=== PATIENT | female | born 1980 | race Caucasian/White ===

== ENCOUNTER 2020-11-20 02:01 | Outpatient (CLI) | payer BC, SELFPAY ==
[2020-11-20 16:03] LABS: Source Nasal/Nares
[2020-11-20 19:43] LABS: COVID-19 PCR Negative (Negative)
== END 2020-11-20 02:02 | disposition home or self-care (01) ==
LOC: LBO 02:01
PROVIDERS: PCP Student in an Organized Health Care Education/Training Program; Visit Provider Surgery
DX: Z20.822 Contact with and (suspected) exposure to COVID-19 (principal); Z01.818 Encounter for other preprocedural examination
CPT/HCPCS: 87635

== ENCOUNTER 2020-11-22 06:21 | Day surgery (SDC) | payer BC, SELFPAY ==
--- NOTE | 2020-11-21 14:58 | PDOC.DSDIS_ITS ---
Discharge Plan Disposition Patient Disposition: HOME Condition: Good Discharge Details Reason For Visit: egd Attending Provider: Missy Iniguez Primary Care Provider: Kayli Ochoa Home Meds and New Rx's Prescriptions: No Action magnesium oxide,aspartate,citr 400 mg magnesium capsule 400 mg PO DAILY Qty: 100 RF: 1 multivitamin [Daily Multi-Vitamin] 1 EACH tablet 1 ea PO DAILY RF: 0 calcium citrate 250 MG tablet 250 mg PO DAILY RF: 0 gummie B complex 1 tab PO DAILY RF: 0 famotidine 20 mg tablet 20 mg PO HS RF: 0 Discharge Instructions Additional Instructions: DSU Colonoscopy Post- Op Instructions Instructions for Everyone who is given Anesthesia: For your safety, please do the following for the next twenty-four (24) hours: *Do Not operate a motor vehicle (car, truck, motorcycle, etc.) *Do Not drink alcoholic beverages or use any recreational drugs for the first 24 hours or while taking pain medications. The medications in your body may have a reaction that can be dangerous. *Do Not make any important decisions or sign any important papers. Findings:mild gastritis Follow up: My office will send a letter with results of pathology in approximately 2 to 3 weeks Continue taking Pepcid as previously prescribed Continue with lifestyle modifications: no alcohol, tobacco products, Aspirin or NSAID's (ibuprofen, Motrin, Naprosyn, aleve, etc), soda pop/any carbonated beverages, caffeine (including tea & chocolate), and acidic foods, (tomatoes, citrus, onions, peppermints) spicy or fried/fatty foods. Do not lie down for 30 minutes after eating, and do not eat 2 hours prior to bedtime. Avoid wearing tight fitting clothing/ belts 1. No lifting over 20 pounds or strenuous activity for the first 24 hours after your procedure. After 24 hours there are no restrictions on your activity but you may feel fatigued for a few days. 2. After you arrive home you may have a light meal and return to your normal diet as you can tolerate it without feeling sick to your stomach. 3. You may have a bloated, gaseous feeling in your belly (abdomen) after a colonoscopy. Passing gas and belching will help. Walking or lying down on your left side with your knees flexed may relieve the discomfort. Call the office at [phone] (Office) or [phone] (Hospital) right away if you notice any of the following: a.Vomiting of blood or ?coffee ground stools?. b.Rectal bleeding 1Tbsp, blood clots or continuous bleeding. c.Severe belly (abdominal) pain. d.A hard distended belly (abdomen) and an inability to pass gas. 4. Please don?t expect to have a normal BM (bowel movement) for 2-3 days after your procedure. 5. If there are questions regarding the findings of your procedure, please contact your doctor 6. If you are unable to contact your doctor with a problem, contact the hospital at [phone]. 7. Continue all your regular medications unless directed otherwise. I understand the above instructions and have no questions. Signature of Patient or Adult Escort Name of Responsible Adult Escort Signature of Nurse Date/Time Activity:: see above Diet:: see abnove Discharge Orders Discharge Orders: Discharge Order (Routine); Ordered 11/21/20 Ordered By: Missy Iniguez DS: Diagnosis Discharge Diagnosis (1) GERD (gastroesophageal reflux disease): Status: Chronic
--- NOTE | 2020-11-21 14:59 | W.PM.ENDDOP ---
Date of service: 11/22/20 Time of Service: 08:06 Endoscopy Report DATE OF PROCEDURE: 11/22/20 PRE-OP DIAGNOSIS: Medication refractory GERD POST-OP DIAGNOSIS: same PROCEDURE: egd SURGEON: Missy Iniguez ANESTHESIA TYPE: General:No Airway ESTIMATED BLOOD LOSS: 1 PATHOLOGY: other COMPLICATIONS: None DISPOSITION: same day INDICATIONS: After informed consent was obtained the patient was take to the procedure room and placed in a supine position. Monitors were applied and a time out was done. The patients name, date of , procedure type, allergies to medications and metal in their body was reviewed. A bite block was placed and the patient was sedated. Once sedated and comfortable the gastroscope was advanced through the oropharynx which was grossly normal into the esophagus. The proximal and mid-esophagus were mild erythema. In the distal esophagus there was normal noted. The scope was advanced into the stomach and through the pylorus into the 3rd portion of the duodenum. The duodenum was noted to be normal. Biopsies were done, all specimens are retrieved and no bleeding is noted. The scope was retracted back into the stomach and biopsies were done to rule out H. pylori. There is a mild diffuse erythema of the antral region. There were no ulcers. The scope was retroflexed. The cardia and fundus were noted to be normal. There is no hiatal hernia noted. The scope was retracted back into the esophagus and biopsies were done of the GE junction to rule out Giron's. The Z line was regular. The GE junction was at 38 cm. The scope was removed and the patient was woken up and taken back to [facility] in stable condition. Follow up: Abnormal
--- NOTE | 2020-11-21 18:53 | ANES.PREOP_ITS ---
General Info Date of Service Date Performed: 11/22/20 Height: 5 ft 6 in Weight: 125.191 kg Body Mass Index (BMI): 44.5 Surgical Procedure: Operation Date: 11/22/20 07:35 Proposed Procedures Side Surgeon p Gastroscopy Missy Iniguez, DO Meds Allergies and Home Medications Allergies Allergy/AdvReac Type Severity Reaction Status Date / Time No Known Allergies Allergy Verified 11/22/20 06:44 Home Medication Medication Instructions Recorded Gummie B Complex 1 tab PO DAILY 11/21/13 calcium citrate 250 mg PO DAILY 11/21/13 multivitamin [Multi Vitamin Daily] 1 ea PO DAILY 11/21/13 famotidine 20 mg tablet 20 mg PO HS 08/08/20 magnesium oxide,aspartate,citr 400 mg PO DAILY #100 cap 08/25/20 Current Visit Medications: Current Medications Generic Name Dose Route Start Last Admin Trade Name Freq PRN Reason Stop Dose Admin Ringer's Solution 1,000 mls @ 80 mls/hr 11/22/20 06:00 IV 12/21/20 23:59 INFUSION [facility] IV Miscellaneous Supplies 1 each 11/22/20 06:00 Iv Access IV 12/21/20 23:59 DIRECTED EBENEZER Ondansetron HCl 4 mg 11/21/20 14:58 Ondansetron 4 Mg/2 Ml Vial IVP Q4H PRN PRN Nausea / Vomiting Sodium Chloride 0 ml 11/22/20 06:00 Normal Saline Flush 10 Ml Syr IV 12/21/20 23:59 PRN PRN Sodium Chloride 0 ml 11/22/20 06:00 Normal Saline 10 Ml Vial IJ 12/21/20 23:59 DIRECTED PRN Sterile Water 0 ml 11/22/20 06:00 Water,Injection,Sterile 10 Ml Vial IJ 12/21/20 23:59 DIRECTED PRN PFSH Active Problems Active Problems: Problem Status Onset Code Pain of right shoulder joint on movement M25.511 GERD (gastroesophageal reflux disease) K21.9 Hypertension I10 Dyshydrosis L30.1 Changes in vision H53.9 (vaginal after ) 05/23/14 O34.21 Post-dates 05/23/14 O48.0 Rh negative status during 05/23/14 O09.899 Body mass index (BMI) of 40.1-44.9 in adult Z68.41 Eczema L30.9 Medical History Medical History Anxiety Zoloft in the past. BMI 40.0-44.9, adult Changes in vision Dyshydrosis Eczema GERD (gastroesophageal reflux disease) Hypertension Pain of right shoulder joint on movement Strain of Trap/Rhomboid? Hx carrying 6yo on vacation. Ice helping. No Ibu 2' GERD for now. Surgical History Surgical History section 02/19/12 LTCS with 2 layer 0-Vicryl closure. F. [id number]. Chorio, non- reassuring FHR at 41w. Daeva. 05/23/14 emergent RCD @ 40.3w for non-ressuring FHR w/o labor. Amniotic band around umbilical cord. Apgars 0/3/5. Wt 3380gms, Corry. Tonsillectomy and adenoidectomy (~1983) Tobacco Smoking/Tobacco Use Status: Never Alcohol Alcohol Intake: current Alcohol intake frequency: holidays/special occasions only Alcohol type: beer, wine and hard liquor Substance Use Substance use: Never Substance use type: does not use Vital Signs and Lab Results Vital Signs Most Recent Vital Signs in EMR: Temp Pulse Resp BP Pulse Ox 36.7 C 92 H 20 134/93 H 99 11/22/20 06:33 11/22/20 06:33 11/22/20 06:33 11/22/20 06:33 11/22/20 06:33 Lab Results Blood Type / Crossmatch: No Data to Display Complete Blood Count: No Data to Display Complete Metabolic Panel: No Data to Display Liver Function Panel: No Data to Display Coagulation Panel: No Data to Display Cardiac Panel: No Data to Display Arterial Blood Gas: No Data to Display Venous Blood Gas: No Data to Display Pancreas Panel: No Data to Display Thyroid Panel: No Data to Display Infectious Disease: Coronavirus (COVID-19)(PCR) Negative (Negative) 11/20/20 08:53 11/20/20 Coronavirus 2019 Source Nasal/Nares 11/20/20 08:53 11/20/20 Blood Cultures: No Data to Display Toxicology Panel: No Data to Display Panel: No Data to Display Anesthesia Assessment and Plan Anesthesia History Personal History: No History of Anesthesia Complications Family History: No Family History of Anesthesia Complications Exercise Tolerance Exercise Tolerance: Metabolic Equivalents>4 Cardiac & Pulmonary Exam Cardiac Exam: Normal S1/S2 Heart Sounds Pulmonary Exam: Clear Bilateral Breath Sounds Airway Exam Known Difficult Airway: No Mallampati Class: 3 Mouth Opening: Normal (> 3cm) Thyromental Distance: Greater than 3 cm Neck Range of Motion: Full ROM Neck Circumference: Thick Teeth Condition: Normal Dentition ASA Classification ASA Score: ASA 3 Emergency Case?: No NPO Status NPO Status: NPO Clears >2 hours, Solids >8 hours Status Status: Negative HCG Anesthesia Plan Resuscitation Status: Full Code Anesthesia Technique: General Anesthesia Airway Planned: Natural Airway Monitors Used: Standard Monitors Preoperative Comments:: 40 yo female for EGD related to reflux symptoms (waking up with sore throat). Previous anesthesia arteaga 2 grade 1.
[2020-11-22 06:33] VITALS: BP 134/93; PULSE 92; RESP 20; TEMP 36.7; O2SAT 99
[2020-11-22] MEDS: Lactated Ringers 1,000 ML 80 ML IV (06:52)
[2020-11-22 07:08] VITALS: BMI 44.5
--- NOTE | 2020-11-22 07:32 | W.PM.HP.N ---
Date of service: 11/22/20 Time of Service: 07:32 Assessment and Plan Assessment and plan (1) GERD (gastroesophageal reflux disease): Status: Chronic Assessment and plan: GERD (gastroesophageal reflux disease): -EGD Risks include but are not limited to:bleeding, infection, perforation of esophagus. This would necessitate emergency surgery to repair the damage w/ possible ostomy; and other associated complications w/ the required surgery. Also complications of anesthesia including aspiration,[place]/CVA/. Protonix Rx Continue with lifestyle modifications: no alcohol, tobacco products, Aspirin or NSAID's (ibuprofen, Motrin, Naprosyn, aleve, etc), soda pop/any carbonated beverages, caffeine (including tea & chocolate), and acidic foods, (tomatoes, citrus, onions, peppermints) spicy foods. Do not lie down for 30 minutes after eating, and do not eat 2 hours prior to bedtime. Avoid wearing tight fitting clothing/ belts. Also d/w importance of weight loss and how this increases reflux. (2) Body mass index (BMI) of 40.1-44.9 in adult: Status: Chronic History of Present Illness Narrative: Pt states she wakes up in am w/ soar throat. She say it feels like material is pooling in nasal passages. She was started on pepcid by PCP; she notes it is helping w/ sourness at night. She denies any pain or difficulty swallowing. no N/V. Her Weight has been stable. She denies constipation or diarrhea. The Pecid is helping about 85%. She takes in evening and helps in evening, but doesn't last thru the night. She Feels pooly when she wakes up. She is working on diet and lifestyle modifications. We talked about weight loss. Psx- x2 C sections. PONV+ family hx of Reflux. vegy fish coffee: 1 in am soda: none. tea/ energy drinks smoker: no ETOH: rare nsaids'asa- rare Review of Systems All systems reviewed & are unremarkable except as noted in HPI and below PFSH Medical History Anxiety Zoloft in the past. BMI 40.0-44.9, adult Changes in vision Dyshydrosis Eczema GERD (gastroesophageal reflux disease) Hypertension Pain of right shoulder joint on movement Strain of Trap/Rhomboid? Hx carrying 5yo on vacation. Ice helping. No Ibu 2' GERD for now. Surgical History section 02/19/12 LTCS with 2 layer 0-Vicryl closure. F. [id number]. Chorio, non-reassuring FHR at 41w. Daeva. 05/23/14 emergent RCD @ 40.3w for non-ressuring FHR w/o labor. Amniotic band around umbilical cord. Apgars 0/3/5. Wt 3380gms, Corry. Tonsillectomy and adenoidectomy (~1983) Family History Father Prostate cancer Mother GERD (gastroesophageal reflux disease) Maternal Grandfather Hodgkin lymphoma pt remarks it may have been from an infected bird/pigeon - and not an hereditary type. Social History Smoking/Tobacco Use Status: Never Smoking risk assessment performed?: Yes Alcohol Intake: current Alcohol Intake frequency: holidays/special occasions only Alcohol type: beer, wine and hard liquor Drug use: Never Substance use type: does not use Adopted: No Caregiver/Support person: No Foster care: No Household members: spouse and children Housing: house Number of Children: 2 Do you need help understanding health information?: Never current occupation: Teacher Sexually active: Yes Do you think of yourself as: straight/heterosexual Current gender identity: female Do you feel safe at home: Yes Do you feel safe in your relationship?: Yes Meds Allergies and Home Medications Allergies Allergy/AdvReac Type Severity Reaction Status Date / Time No Known Allergies Allergy Verified 11/22/20 06:44 Home Medications Medication Instructions Recorded Confirmed Type Gummie B Complex 1 tab PO DAILY 11/21/13 11/22/20 History calcium citrate 250 mg PO DAILY 11/21/13 11/22/20 History multivitamin [Multi Vitamin Daily] 1 ea PO DAILY 11/21/13 11/22/20 History famotidine 20 mg tablet 20 mg PO HS 08/08/20 11/22/20 History magnesium oxide,aspartate,citr 400 mg PO DAILY #100 cap 08/25/20 11/22/20 Rx Exam Const General: cooperative, healthy appearing, comfortable, no acute distress, well developed and well groomed Nutritional Appearance: average body habitus and well nourished Orientation: alert, awake and oriented x3 [facility] Head: normal to inspection, normocephalic and atraumatic Ears: hearing grossly normal bilaterally and external ears normal General nose exam: external nose normal Face and sinus: normal facial exam and sinuses nontender Mouth: oral mucosae normal, lip normal, tongue normal and moist mucous membranes Teeth and gingiva: dentition normal Eyes General: appearance normal, both eyes and all related structures Conjunctivae: conjunctivae normal Sclera: sclerae normal Pupils: PERRL Neck Neck: normal visual inspection and full ROM Chest Chest: normal inspection of the chest Resp Effort & Inspection: normal respiratory effort, able to speak in complete sentences, no cough, no nasal flaring, not tachypneic and no use of accessory muscles Auscultation: clear to auscultation bilaterally, no rales, no rhonchi and no wheezes Cardio Jugular venous pressure: no JVD Rate: regular rate Rhythm: regular rhythm GI Inspection: normal to inspection, no edema and non-distended Palpation: soft, no masses, nontender and No ascites Auscultation: normal bowel sounds Skin General skin exam: no rashes or lesions noted Trauma: no lacerations or abrasions Neuro General: patient alert, patient oriented x3, oriented, gait normal, moves all extremities, no focal motor deficits and CN's II-XI intact bilaterally Cognition: normal cognition Speech: speech normal Gait: normal gait Motor: muscle tone normal throughout Extrem General: normal to inspection, full ROM and no clubbing, cyanosis or edema Psych Appearance: grossly normal and well kempt Mental Status: mental status grossly normal Speech and Movement: speech and movement normal Affect: normal affect Results Last Vital Signs Temp 36.7 C 11/22/20 06:33 Pulse 92 H 11/22/20 06:33 Resp 20 11/22/20 06:33 BP 134/93 H 11/22/20 06:33 Pulse Ox 99 11/22/20 06:33
--- NOTE | 2020-11-22 07:32 | W.ANESPOSTOP ---
Postoperative Evaluation Date, Time and Location Date Performed: 11/22/20 Time Performed: 08:16 Patient Location: Day Surgery Unit Vital Signs Most Recent Imported Vital Signs: Most Recent Vital Signs Temp Pulse Resp BP Pulse Ox 36.7 C 92 H 20 134/93 H 99 11/22/20 06:33 11/22/20 06:33 11/22/20 06:33 11/22/20 06:33 11/22/20 06:33 Most Recent Manually Entered Vital Signs: Adult Blood Pressure: 129/95 Heart Rate: 91 Respirations: 18 Oxygen Saturation (%): 97 Temperature (C): 36.3 C Pain Score (0-10 Scale): 0 Pain Score Most Recent Pain Score: Most Recent Pain Score Pain Level 0 11/22/20 06:33 Assessment Mental Status: Awake (Alert & Oriented to Patient Baseline) Airway and Respiratory Function: Patent airway with normal (patient baseline) respiratory exam Cardiovascular Function: Hemodynamically Stable Hydration Status: Adequately Hydrated Nausea & Vomiting: No Nausea or Vomiting Pain: Pt. Denies Any Pain Peripheral Nerve Block: Patient did not receive a nerve block
--- NOTE | 2020-11-22 07:55 | STOM_PTH ---
PATIENT: Jose Saenz LOC: [facility] U#:[id number] AGE/SX: 40/F ROOM: RE11/22/[address]: Missy nIiguez : 1980 BED: DIS: 11/22/2020 SPEC #: [id number] RECD: 11/22/20 12:51 STATUS: AMINA REQ #: [id number] ROSANNE: 11/22/20 07:[address]: Missy Iniguez DEPT: Surgical Specimen RECD BY: Kelly Vance ENTERED: 11/22/20 12:53 SP TYPE: STOMACH OTHR DR: Kayli Ochoa DO Tissues: 1 - BIOPSY BOWEL 2 - BIOPSY BOWEL 3 - STOMACH BIOPSY 4 - STOMACH BIOPSY 5 - ESOPHAGUS BIOPSY 6 - ESOPHAGUS BIOPSY Procedures: GROSS AND MICRO LEVEL 4 Comments: [id number]
[2020-11-22 08:06] VITALS: BP 129/95; PULSE 91; RESP 22; TEMP 36.3; O2SAT 97
[2020-11-22 08:16] VITALS: BP 129/95; PULSE 91; RESP 18; TEMPC 36.3; O2SAT 97
[2020-11-22 08:35] VITALS: BP 122/85; PULSE 75; RESP 20; TEMP 36.5; O2SAT 97
== END 2020-11-22 09:17 | disposition home or self-care (01) ==
PROVIDERS: PCP Student in an Organized Health Care Education/Training Program; Visit Provider Surgery
PROC: 0DJ68ZZ Inspection of Stomach, Via Natural or Artificial Opening Endoscopic (ICD-10-PCS; CPT 43235; principal; 2020-11-22 07:30)
DX: K21.9 Gastro-esophageal reflux disease without esophagitis (principal); K22.70 Barrett's esophagus without dysplasia; K31.89 Other diseases of stomach and duodenum; I10 Essential (primary) hypertension
CPT/HCPCS: 43239; 81025; 88305; J2001

== ENCOUNTER 2020-12-24 16:26 | Outpatient (REF) | payer BC, SELFPAY ==
--- NOTE | 2020-12-24 16:00 | PAPFT_PTH ---
PATIENT: Jose Saenz LOC: [facility] U#:[id number] AGE/SX: 40/F ROOM: RE12/24/[address]: Rossana Banegas : 1980 BED: DIS: 12/24/2020 SPEC #: [id number] RECD: 12/24/20 16:40 STATUS: AMINA REQ #: [id number] ROSANNE: 12/24/20 16:[address]: Rossana Banegas DEPT: [facility] Cytology RECD BY: Kelly Vance ENTERED: 12/24/20 16:41 SP TYPE: PAPFT OTHR DR: Kayli Ochoa DO Tissues: 1 - CX/ENDOCX FOR PAP SMEARS Procedures: PAP THIN PREP/[facility] Screening HPV DNA PROBE Comments: [id number]
== END 2020-12-24 16:27 | disposition home or self-care (01) ==
LOC: LBN 16:26
PROVIDERS: PCP Student in an Organized Health Care Education/Training Program; Visit Provider Obstetrics & Gynecology Gynecology
DX: Z12.4 Encounter for screening for malignant neoplasm of cervix (principal); Z11.51 Encounter for screening for human papillomavirus (HPV)
CPT/HCPCS: 88142; 87624

== ENCOUNTER 2021-01-03 02:30 | Outpatient (CLI) | payer BC, SELFPAY ==
--- NOTE | 2021-01-03 06:45 | DI.MAMMO_ITS ---
Exam(s) MAMMO SCREENING EXAM: MAMMO SCREENING CLINICAL HISTORY: screening,Z12.39 TECHNIQUE: Bilateral full field digital CC and MLO mammographic images were obtained with 3D tomosyn thesis and utilizing computer aided detection (CAD). COMPARISON: None. FINDINGS: Masses/Architectural Distortion: None seen. Microcalcifications: No suspicious pleomorphic-type are seen. Skin Thickening/Nipple Retraction: None. IMPRESSION: 1. No significant interval change with no specific features of malignancy noted. 2. Unless there is more urgent need, screening mammography is recommended, as per [employer] guidelines. BI-RADS Category 1 - Negative Breast Density - Category A - Almost entirely fatty Breast density category C or D implies that the patient has dense breast tissue. Dense breast tissue is very common and is not abnormal but dense breast tissue can make it harder to find cancer on a ma mmogram. Also, dense breast tissue may increase their breast cancer risk. This information about the result of the mammogram report was provided to the patient to raise their awareness. Use this report when you speak with the patient about their risks for breast cancer, which includes their family hist ory. At that time, you may recommend for more screening tests (Ultrasound or MRI) as they might be us eful based on their risk. A negative radiographic report should not delay biopsy if a dominant or clinically suspicious mass is present. Up to ten percent of cancers are not identified on mammography. A negative report may reinforce clinical impression. Adenosis and dense breasts may obscure an underlying neoplasm. False positive reports average 6 to 10%. Patient will receive a letter notifying them of these results.
== END 2021-01-03 02:50 ==
PROVIDERS: PCP Student in an Organized Health Care Education/Training Program; Visit Provider Obstetrics & Gynecology Gynecology
DX: Z12.31 Encounter for screening mammogram for malignant neoplasm of breast (principal)
CPT/HCPCS: 77063; 77067

== ENCOUNTER 2021-06-27 04:00 | Outpatient (CLI) | payer BC, SELFPAY | END 2021-06-27 04:01 | disposition home or self-care (01) | LOC: RT 04:00 | PROVIDERS: PCP Student in an Organized Health Care Education/Training Program; Visit Provider Student in an Organized Health Care Education/Training Program | DX: R53.83 Other fatigue (principal) | CPT/HCPCS: 94762 ==

== ENCOUNTER 2021-11-06 03:26 | Outpatient (CLI) | payer BC, SELFPAY ==
[2021-11-06 12:23] LABS: HCT 42.5 % (36.0-46.0); HGB 14.6 g/dL (11.2-15.7); MCH 30.3 pg (27.0-33.0); MCHC 34.4 % (32.0-36.0); MCV 88 fL (80-95); MPV 11.1 fL (8.0-11.0); Platelet Count 296 10^3/uL (130-400); RBC 4.82 10^6/uL (3.93-5.22); RDW 12.4 % (11.7-14.6); RDW-SD 40.3 fL; WBC 7.63 10^3/uL (4.4-10.8)
[2021-11-06 12:42] LABS: ALT 56 U/L (14-59); AST 35 U/L (15-37); Albumin 3.9 g/dL (3.4-5.0); Alkaline Phosphatase 85 U/L (46-116); Anion Gap 8.6 mmol/L (3-11); BUN 9 mg/dL (7-18); Bilirubin, Total 0.6 mg/dL (0.2-1.0); CO2 28.4 mmol/L (21.0-32.0); CREATININE 0.8 mg/dL (0.55-1.02); Calcium 9.1 mg/dL (8.5-10.1); Calculated LDL 211 mg/dL (<100); Chloride 104 mmol/L (98-107); Cholesterol 298 mg/dL (<200); Glucose 100 mg/dL (74-106); HDL Cholesterol 44 mg/dL (40-60); Potassium 4.1 mmol/L (3.5-5.1); Sodium 141 mmol/L (136-145); TSH (W/Ref FT4) 3.71 uIU/mL (0.36-3.74); Total Protein 7.5 g/dL (6.4-8.2); Triglyceride 217 mg/dL (<150)
[2021-11-06 12:57] LABS: Vitamin D 25 Total 27.1 ng/mL (30-100)
== END 2021-11-06 03:27 | disposition home or self-care (01) ==
LOC: LOS 03:29
PROVIDERS: PCP Student in an Organized Health Care Education/Training Program; Visit Provider Student in an Organized Health Care Education/Training Program
DX: R53.83 Other fatigue (principal); R63.5 Abnormal weight gain; I10 Essential (primary) hypertension; E86.0 Dehydration; K90.9 Intestinal malabsorption, unspecified; K22.70 Barrett's esophagus without dysplasia; D64.9 Anemia, unspecified; Z13.220 Encounter for screening for lipoid disorders; Z79.899 Other long term (current) drug therapy; Z86.2 Personal history of diseases of the blood and blood-forming organs and certain disorders involving the immune mechanism
CPT/HCPCS: 36415; 80053; 80061; 82306; 85027; 84443

== ENCOUNTER 2022-05-27 02:50 | Outpatient (CLI) | payer BC, SELFPAY ==
[2022-05-27 11:33] LABS: Calculated LDL 204 mg/dL (<100); Cholesterol 295 mg/dL (<200); HDL Cholesterol 48 mg/dL (40-60); Triglyceride 218 mg/dL (<150)
[2022-05-27 12:20] LABS: Vitamin D 25 Total 25.6 ng/mL (30-100)
== END 2022-05-27 02:51 | disposition home or self-care (01) ==
PROVIDERS: PCP Student in an Organized Health Care Education/Training Program; Visit Provider Student in an Organized Health Care Education/Training Program
DX: Z00.00 Encounter for general adult medical examination without abnormal findings (principal); E55.9 Vitamin D deficiency, unspecified; K21.00 Gastro-esophageal reflux disease with esophagitis, without bleeding; Z13.220 Encounter for screening for lipoid disorders
CPT/HCPCS: 36415; 80061; 82306

== ENCOUNTER 2022-07-29 01:18 | Outpatient (CLI) | payer BC, SELFPAY ==
--- NOTE | 2022-07-29 08:00 | DI.MAMMO_ITS ---
Exam(s) MAMMO SCREENING EXAM: MAMMO SCREENING CLINICAL HISTORY: screening,Z12.39 TECHNIQUE: Mammograms were interpreted according to the usual protocol including computer analysis w TripTouch CAD system, tomosynthesis and C-view imaging. COMPARISON: 2020 FINDINGS: The breasts are composed of mainly fatty density , Breast Density category A. No suspicious masses or suspicious microcalcifications are seen. No skin thickening or abnormal axillary lymph nodes are seen. There has been no significant change from prior exams. IMPRESSION: BI-RADS Category 1, Negative mammogram Yearly screening mammography is recommended. Breast Density - Category A, fatty density. A negative radiographic report should not delay biopsy if a dominant or clinically suspicious mass is present. Up to ten percent of cancers are not identified on mammography. A negative report may reinforce clinical impression. Adenosis and dense breasts may obscure an underlying neoplasm. False positive reports average 6 to 10%. Patient will receive a letter notifying them of these results.
== END 2022-07-29 01:38 ==
LOC: DI 01:18
PROVIDERS: PCP Student in an Organized Health Care Education/Training Program; Visit Provider Obstetrics & Gynecology Gynecology
DX: Z12.31 Encounter for screening mammogram for malignant neoplasm of breast (principal)
CPT/HCPCS: 77063; 77067

== ENCOUNTER 2023-06-08 04:44 | Outpatient (CLI) | payer BC, SELFPAY ==
[2023-06-08 11:27] LABS: HCT 40.5 % (36.0-46.0); HGB 14.1 g/dL (11.2-15.7); MCH 31.1 pg (27.0-33.0); MCHC 34.8 % (32.0-36.0); MCV 89 fL (80-95); MPV 10.2 fL (8.0-11.0); Platelet Count 293 10^3/uL (130-400); RBC 4.53 10^6/uL (3.93-5.22); RDW 12.4 % (11.7-14.6); RDW-SD 40.8 fL; WBC 8.56 10^3/uL (4.4-10.8)
[2023-06-08 12:10] LABS: Anion Gap 10.3 mmol/L (3-11); BUN 8 mg/dL (7-18); CO2 28.7 mmol/L (21.0-32.0); CREATININE 0.8 mg/dL (0.55-1.02); Calcium 9.5 mg/dL (8.5-10.1); Calculated LDL 199 mg/dL (<100); Chloride 104 mmol/L (98-107); Cholesterol 296 mg/dL (<200); Glucose 97 mg/dL (74-106); HDL Cholesterol 45 mg/dL (40-60); Potassium 3.9 mmol/L (3.5-5.1); Sodium 143 mmol/L (136-145); TSH (W/Ref FT4) 7.45 uIU/mL (0.36-3.74); Triglyceride 264 mg/dL (<150)
[2023-06-08 12:24] LABS: Vitamin D 25 Total 25.1 ng/mL (30-100)
[2023-06-08 12:27] LABS: FREE T4 0.77 ng/dL (0.76-1.46)
== END 2023-06-08 04:45 | disposition home or self-care (01) ==
LOC: LBO 04:44
PROVIDERS: Absent Provider Student in an Organized Health Care Education/Training Program; PCP Student in an Organized Health Care Education/Training Program; Referring Provider Student in an Organized Health Care Education/Training Program; Visit Provider Student in an Organized Health Care Education/Training Program
DX: I10 Essential (primary) hypertension (principal); Z91.89 Other specified personal risk factors, not elsewhere classified; K21.00 Gastro-esophageal reflux disease with esophagitis, without bleeding; N93.9 Abnormal uterine and vaginal bleeding, unspecified
CPT/HCPCS: 36415; 80048; 80061; 82306; 85027; 84439; 84443

== ENCOUNTER 2023-07-26 05:07 | Outpatient (CLI) | payer BC, SELFPAY | END 2023-07-26 05:08 | disposition home or self-care (01) | LOC: LBO 05:08 | PROVIDERS: PCP Student in an Organized Health Care Education/Training Program; Referring Provider Student in an Organized Health Care Education/Training Program; Visit Provider Student in an Organized Health Care Education/Training Program | DX: R79.89 Other specified abnormal findings of blood chemistry (principal) | CPT/HCPCS: 36415; 84439; 84443 ==

== ENCOUNTER → 2023-08-03 02:56 | Outpatient (CLI) | payer BC, SELFPAY ==
--- NOTE | 2023-08-03 08:30 | DI.MAMMO_ITS ---
Exam(s) MAMMO SCREENING EXAM: MAMMO SCREENING CLINICAL HISTORY: screening,Z12.39. TECHNIQUE: Bilateral full field digital CC and MLO mammographic images were obtained with 3D tomosyn thesis and utilizing computer aided detection (CAD). COMPARISON: Prior mammograms were reviewed. FINDINGS: There has been no significant change in the appearance and distribution of the fibroglandular tissue. There are no new spiculated masses nor malignant appearing microcalcification groups. There is no significant architectural distortion nor skin thickening-retraction. IMPRESSION: No radiographic evidence of malignancy. BI-RADS Category 1 - Negative Breast Density - Category A - Almost entirely fatty Breast density Category C or D implies that the patient has dense breast tissue. Dense breast tissue can make it harder to find cancer on a mammogram. Dense breast tissue is also associated with an incr eased risk of breast cancer. This information about the result of the mammogram report was provided to the patient to raise their awareness. Use this report when you speak with the patient about their risks for breast cancer, which includes their family history. At that time, you may recommend additional screening tests (Ultrasoun d or MRI) as these tests may add significant information. A negative radiographic report should not delay biopsy if a dominant or clinically suspicious mass is present. Up to ten percent of cancers are not identified on mammography. A negative report may reinforce clinical impression. Adenosis and dense breasts may obscure an underlying neoplasm. False positive reports average 6 to 10%. Patient will receive a letter notifying them of these results.
== END ==
PROVIDERS: PCP Student in an Organized Health Care Education/Training Program; Visit Provider Student in an Organized Health Care Education/Training Program
DX: Z12.31 Encounter for screening mammogram for malignant neoplasm of breast (principal)
CPT/HCPCS: 77063; 77067

== ENCOUNTER 2023-11-04 04:02 | Outpatient (CLI) | payer BC, SELFPAY ==
[2023-11-04 15:29] LABS: TSH (W/Ref FT4) 1.37 uIU/mL (0.36-3.74); Vitamin D 25 Total 54.3 ng/mL (30-100)
== END 2023-11-04 04:03 | disposition home or self-care (01) ==
LOC: LBO 04:02
PROVIDERS: PCP Student in an Organized Health Care Education/Training Program; Visit Provider Student in an Organized Health Care Education/Training Program
DX: K90.9 Intestinal malabsorption, unspecified (principal); R79.89 Other specified abnormal findings of blood chemistry
CPT/HCPCS: 36415; 82306; 84443

== ENCOUNTER 2024-07-04 02:09 | Outpatient (CLI) | payer OTHER, SELFPAY ==
[2024-07-04 12:23] LABS: Calculated LDL 195 mg/dL (<100); Cholesterol 290 mg/dL (<200); HDL Cholesterol 53 mg/dL (>or=50); TSH (W/Ref FT4) 2.85 uIU/mL (0.36-3.74); Triglyceride 212 mg/dL (<150)
== END 2024-07-04 02:10 | disposition home or self-care (01) ==
LOC: LBO 02:09
PROVIDERS: PCP Family Medicine; Visit Provider Family Medicine
DX: E78.5 Hyperlipidemia, unspecified (principal); E03.9 Hypothyroidism, unspecified
CPT/HCPCS: 36415; 80061; 84443

== ENCOUNTER 2024-08-03 01:51 | Outpatient (CLI) | payer OTHER, SELFPAY ==
--- NOTE | 2024-08-03 08:15 | DI.MAMMO_ITS ---
Exam(s) MAMMO SCREENING EXAM: MAMMO SCREENING CLINICAL HISTORY: screening,z12.39 TECHNIQUE: Mammograms were interpreted according to the usual protocol including computer analysis w [employer] CAD system, tomosynthesis and C-view imaging. COMPARISON: 2020 through 2023 FINDINGS: The breasts are composed of mainly fatty density , Breast Density category A. No suspicious masses or suspicious microcalcifications are seen. No skin thickening or abnormal axillary lymph nodes are seen. There has been no significant change from prior exams. IMPRESSION: BI-RADS Category 1, Negative mammogram Yearly screening mammography is recommended. Breast Density - Category A, fatty density. Breast density Category C or D implies that the patient has dense breast tissue. Dense breast tissue can make it harder to find cancer on a mammogram. Dense breast tissue is also associated with an incr eased risk of breast cancer. This information about the result of the mammogram report was provided to the patient to raise their awareness. Use this report when you speak with the patient about their risks for breast cancer, which includes their family history. At that time, you may recommend additional screening tests (Ultrasoun d or MRI) as these tests may add significant information. A negative radiographic report should not delay biopsy if a dominant or clinically suspicious mass is present. Up to ten percent of cancers are not identified on mammography. A negative report may reinforce clinical impression. Adenosis and dense breasts may obscure an underlying neoplasm. False positive reports average 6 to 10%. Patient will receive a letter notifying them of these results.
== END 2024-08-03 02:11 ==
LOC: DI 01:51
PROVIDERS: PCP Family Medicine; Visit Provider Student in an Organized Health Care Education/Training Program
DX: Z12.31 Encounter for screening mammogram for malignant neoplasm of breast (principal); R92.313 Mammographic fatty tissue density, bilateral breasts
CPT/HCPCS: 77063; 77067

== ENCOUNTER 2024-08-11 21:26 | Outpatient (REF) | payer OTHER, SELFPAY ==
[2024-08-11 21:54] LABS: Abs Immature Grans 0.03 10^3/uL (0.0-0.06); Absolute Basophil Count 0.03 10^3/uL (0.0-0.2); Absolute Eosinophil Count 0.05 10^3/uL (0.0-0.7); Absolute Lymphocyte Count 1.69 10^3/uL (1.2-3.4); Absolute Monocyte Count 1.33 10^3/uL (0.1-0.8); Absolute Neutrophil Count 6.01 10^3/uL (1.2-6.7); Basophils % 0.3 %; Eosinophils % 0.5 %; HCT 41.4 % (36.0-46.0); HGB 14.3 g/dL (11.2-15.7); Immature Grans % 0.3 %; Lymphocytes % 18.5 %; MCH 30.9 pg (27.0-33.0); MCHC 34.5 % (32.0-36.0); MCV 89 fL (80-95); MPV 11.3 fL (8.0-11.0); Monocytes % 14.6 %; Neutrophils % 65.8 %; Platelet Count 250 10^3/uL (130-400); RBC 4.63 10^6/uL (3.93-5.22); RDW 13.1 % (11.7-14.6); RDW-SD 42.5 fL; WBC 9.14 10^3/uL (4.4-10.8)
[2024-08-11 22:13] LABS: ALT 33 U/L (14-59); AST 16 U/L (15-37); Alkaline Phosphatase 109 U/L (46-116); Anion Gap 8.1 mmol/L (3-11); BUN 9 mg/dL (7-18); Bilirubin, Total 0.6 mg/dL (0.2-1.0); CO2 27.9 mmol/L (21.0-32.0); CREATININE 0.8 mg/dL (0.55-1.02); Calcium 9.3 mg/dL (8.5-10.1); Chloride 102 mmol/L (98-107); Estimated GFR 92.54 (mL/min/1.73m2); Glucose 114 mg/dL (74-106); Potassium 3.9 mmol/L (3.5-5.1); Sodium 138 mmol/L (136-145); Total Protein 6.9 g/dL (6.4-8.2)
[2024-08-11 22:31] LABS: COVID-19 PCR Negative (Negative); Influenza A PCR Negative (Negative); Influenza B PCR Negative (Negative); RSV PCR Negative (Negative)
[2024-08-11 22:32] LABS: Source Nasopharynx
[2024-08-14 10:59] LABS: Lyme Ab w Rflx to Lyme Confirm Negative (Negative)
[2024-08-15 21:54] LABS: Anaplasma phagocytophilum Negative (Negative); B. miyamotoi PCR Negative (Negative); Babesia divergens/MO-1 Negative (Negative); Babesia duncani Negative (Negative); Babesia microti Negative (Negative); Ehrlichia chaffeensis Negative (Negative); Ehrlichia ewingii/canis Negative (Negative); Ehrlichia muris eauclairensis Negative (Negative)
== END 2024-08-11 21:27 | disposition home or self-care (01) ==
LOC: LBN 21:26
PROVIDERS: PCP Family Medicine; Visit Provider Physician Assistant Medical
DX: R50.9 Fever, unspecified (principal)
CPT/HCPCS: 80053; 87637; 87798; 85025; 86618

== ENCOUNTER 2024-08-25 16:19 | Outpatient (REF) | payer OTHER, SELFPAY | END 2024-08-25 16:20 | disposition home or self-care (01) | LOC: LBN 16:19 | PROVIDERS: PCP Family Medicine; Visit Provider Obstetrics & Gynecology | DX: Z12.4 Encounter for screening for malignant neoplasm of cervix (principal) | CPT/HCPCS: 88142; 87624 ==

== ENCOUNTER 2024-10-31 10:32 | Day surgery (SDC) | payer OTHER, SELFPAY ==
--- NOTE | 2024-10-30 19:56 | W.PREOPHP ---
Assessment and Plan Assessment and plan (1) Barretts esophagus: Status: Acute Assessment and plan: Jose had the chance to ask any new questions and we can proceed with EGD and colonoscopy as planned. History of Present Illness History of Present Illness Chief Complaint: Barretts esophagus Narrative: Jose is 44 years old, and she is here for a follow-up EGD for Giron's esophagus. She was first diagnosed about 5 years ago when she began experiencing significant dyspepsia. She underwent an EGD that demonstrated some mild gastric antritis, but was otherwise normal-appearing. She underwent biopsies of the GE junction which measured approximately 38 cm from the incisors. Biopsies of the GE junction showed focal intestinal metaplasia in a background of reflux esophagitis. Since then, she has done well with medication, dietary, and lifestyle changes. She is currently only using Pepcid and sucralfate as needed. She has only occasional dyspepsia. Incidentally, she is also due for screening colonoscopy. With regards to the history, there have been no major interval changes. PFSH All Active Problems Hyperlipidemia (Chronic) Hypothyroidism (Chronic) Abnormal uterine bleeding (AUB) (Acute) Vitamin D deficiency (Acute) Still low, 06/08/23..per 11/2021 labs. Weekly Vit D, 12/2021, re-check May 2022. At risk for osteoporosis (Acute) 2' PPI use; low Vit D; low dairy intake. Reviewed Ca intake from mult sources, 12/2021. Barretts esophagus (Acute) per EGD, 11/2020 (Dr. Iniguez) (EGD q3 yrs) .. PPI + Sucralfate x 6-12-36 mos .. [Metaplasia; No Dysplasia]. Gastro-esophageal reflux disease with esophagitis (Acute) per EGD, 11/2020 Pain of right shoulder joint on movement (Acute) Strain of Trap/Rhomboid? Hx carrying 6yo on vacation. Ice helping. No Ibu 2' GERD for now. Hypertension (Chronic) Dyshydrosis (Acute) Body mass index (BMI) of 40.1-44.9 in adult (Chronic) Eczema (Chronic) Medical History Esophagitis Positive self-administered antigen test for COVID-19 sx onset 06/01/22. Elevated glucose tolerance test (02/28/14) 1hr elevated. pt ordered to have 3hr GTT. No lab results from 3-hr GTT in computer, but pt says Dr Banegas told her they were normal History of anemia H/H WNL, 11/2021 Rh negative state in antepartum period (10/24/13) needs Rhogam BMI 40.0-44.9, adult Eczema Anxiety Zoloft in the past. Surgical History History of section (10/17/13) History of esophagogastroduodenoscopy (EGD) (~11/22/20) Tonsillectomy and adenoidectomy (~1983) section 02/19/12 LTCS with 2 layer 0-Vicryl closure. F. [id number]. Chorio, non-reassuring FHR at 41w. Daeva. 05/23/14 emergent RCD @ 40.3w for non-ressuring FHR w/o labor. Amniotic band around umbilical cord. Apgars 0/3/5. Wt 3380gms, Corry. Family History Father Prostate cancer Mother GERD (gastroesophageal reflux disease) Maternal Grandfather Hodgkin lymphoma pt remarks it may have been from an infected bird/pigeon - and not an hereditary type. GERD (gastroesophageal reflux disease) Social History Smoking/Tobacco Use Status: Never Tobacco: How many years used: 0 Smoking risk assessment performed?: Yes Alcohol Intake: current Alcohol Intake frequency: holidays/special occasions only Alcohol type: beer, wine and hard liquor Drug use: Never Substance use type: does not use Adopted: No Caregiver/Support person: No Foster care: No Household members: spouse, children and other Details: [place]. D-[place]. 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 Do you need help understanding health information?: Never current occupation: Teacher Sexually active: Yes Do you think of yourself as: straight/heterosexual Current gender identity: female Do you feel safe at home: Yes Do you feel safe in your relationship?: Yes Meds Allergies and Home Medications Allergies Allergy/AdvReac Type Severity Reaction Status Date / Time No Known Allergies Allergy Verified 10/31/24 11:10 Home Medications ?Medication ?Instructions ?Recorded ?Confirmed ?Type Gummie B Complex 1 tab PO DAILY 11/21/13 10/31/24 History calcium citrate 250 mg PO DAILY 11/21/13 10/31/24 History multivitamin (Daily Multi-Vitamin 1 ea PO DAILY 11/21/13 10/31/24 History tablet) dietary supplement cap PO DAILY 06/03/23 10/11/24 History magnesium gluconate 30 mg (550 mg) 30 mg PO DAILY 06/03/23 10/31/24 History tablet famotidine 40 mg tablet 40 mg PO QHS PRN reflux, post 09/07/23 10/31/24 Rx taper off PPI #90 tabs sucralfate 1 gram tablet See Rx Instructions .Route 04/10/24 10/31/24 Rx .COMPLEX #90 tabs levothyroxine 75 mcg tablet 75 mcg PO DAILY 06/30/24 10/31/24 History fluticasone propionate 50 1 - 2 spray intranasal DAILY PRN 10/11/24 10/31/24 Rx mcg/actuation nasal nasal congestion/post-nasal drip spray,suspension (Flonase Allergy #16 grams Relief) Exam Const General: cooperative, healthy appearing and not in acute distress Neck Neck: normal visual inspection, no lymphadenopathy and supple Resp Effort & Inspection: normal respiratory effort Auscultation: clear to auscultation bilaterally Cardio Jugular venous pressure: no JVD Rate: regular rate Rhythm: regular rhythm Heart Sounds: S1 normal and S2 normal GI Inspection: normal to inspection Palpation: soft, no guarding, no hernias and nontender Percussion: normal to percussion Auscultation: normal bowel sounds Neuro General: patient alert, patient awake and patient oriented x3 Psych Appearance: grossly normal
--- NOTE | 2024-10-30 19:58 | ENDO_ITS ---
Date of service: 10/31/24 Time of Service: 13:17 Endoscopy Report DATE OF PROCEDURE: 10/31/24 PRE-OP DIAGNOSIS: Barretts esophagus and screening colonoscopy PROCEDURE: EGD with biopsies and colonoscopy with polypectomy SURGEON: Armando Mclaughlin ANESTHESIA TYPE: General:No Airway ESTIMATED BLOOD LOSS: 5 PATHOLOGY: other (Biopsies of GE junction; 0.25 cm pedunculated polyp at 60 cm) COMPLICATIONS: None DISPOSITION: same day INDICATIONS: Jose is a 44 year old owman who needs a follow up EGD for Barretts esophagus PREP: Miralax/Dulcolax PROCEDURE START TIME: 12:46 PROCEDURE END TIME: 13:08 COLONOSCOPY RETRACTION TIME: 8 FINDINGS: Mostly irregular Z-line at 38 cm; 0.25 cm pedunculated colon polyp at 60 cm PROCEDURE DESCRIPTION: After the initiation of anesthesia, and with the assistance of a bite block, I advanced a standard gastroscope through the mouth past the hypopharynx and into the esophagus.? Under the direct vision of the scope, I advanced down the esophagus towards the stomach.? The upper, mid, and lower esophagus were all normal and healthy appearing. There is very mild irregularity of the Z-line measuring approximately 38 cm beyond the incisors. Narrowband imaging was used to assist with the analysis. It did not really seem like Giron's esophagus, but given the history, I did perform cold forceps biopsies here. I am able to enter the stomach with ease. I performed retroflexion. There is a grade 1 hiatal hernia. There is no evidence of any gastritis, or any inflammation involving the stomach proper. I extended down to the third portion of the duodenum, and all of this was normal. Next I brought the camera back up into the stomach and emptied it completely before removing it out along the length of the esophagus 1 last time. No other abnormalities were appreciated. We then rolled Jose into the left lateral decubitus position. I performed an external anorectal exam.? Perineum and skin were normal, as was the anal verge.? There was no evidence of external hemorrhoids.? Next, I performed a digital rectal exam.? I did not appreciate any abnormal findings.? Next, I advanced a colonoscope into the rectal vault.? I performed retroflexion.? This appeared normal.? Using insufflation, I then advanced the colonoscope beyond the rectal folds and into the sigmoid colon before advancing towards the cecum.? Around 60 cm beyond the anal verge was a 0.25 cm pedunculated polyp. This was removed with cold snare polypectomy. There was minimal bleeding. Excision was complete.? The scope was noted to be in the cecum by identification of the ileocecal valve and appendiceal orifice.? I then began withdrawing the colonoscope using repeated irrigation as necessary for full evaluation of the colonic mucosa. ?The previous polypectomy site was noted and was hemostatic. Once the scope was withdrawn to the level of the rectum, great care was taken to examine portions of the rectal folds.? Finally, the scope was withdrawn and the patient was brought to the same-day surgery recovery unit as the anesthetic wore off. ?The findings and instructions were shared with the patient prior to discharge. The [place] bowel prep score from right to left was 3, 3, 3
--- NOTE | 2024-10-30 20:00 | W.PM.DSUDISC ---
Date of service: 10/31/24 Discharge Plan Disposition Patient Disposition: Home Condition: Good Discharge Details Reason For Visit: EGD Attending Provider: Armando Mclaughlin Primary Care Provider: Serjio Campos Home Meds and New Rx's Prescriptions: Continued dietary supplement Capsule PO DAILY Patient Comments: Gummy D vitamin magnesium gluconate 30 mg (550 mg) tablet 30 mg PO DAILY Patient Comments: Pt unsure of dosage.HE fluticasone propionate [Flonase Allergy Relief] 50 mcg/actuation spray,suspension 1 - 2 spray intranasal DAILY PRN (Reason: nasal congestion/post-nasal drip) Qty: 16 1RF Rx Instructions: administer into each nostril multivitamin [Daily Multi-Vitamin] 1 EACH tablet 1 ea PO DAILY calcium citrate 250 MG tablet 250 mg PO DAILY gummie B complex 1 tab PO DAILY famotidine 40 mg tablet 40 mg PO QHS PRN (Reason: reflux, post taper off PPI) Qty: 90 3RF Rx Instructions: continue 40mg qHS sucralfate 1 gram tablet See Rx Instructions .ROUTE .COMPLEX Qty: 90 6RF Dose Instruction: TAKE 1 TABLET BY MOUTH BEFORE MEALS, AND AT BEDTIME Rx Instructions: TAKE 1 TABLET BY MOUTH BEFORE MEALS, AND AT BEDTIME levothyroxine 75 mcg tablet 75 mcg PO DAILY Discontinued bisacodyl [Dulcolax (bisacodyl)] 5 mg tablet,delayed release (DR/EC) 5 mg PO ONCE Qty: 4 0RF Rx Instructions: take per colonoscopy instructions polyethylene glycol 3350 17 gram/dose powder 238 g PO ONCE Qty: 238 0RF Rx Instructions: take per colonoscopy instructions Discharge Instructions Instructions: Colon polyps Additional Instructions: Jose, it was very good seeing you today, and I hope you make a quick and uneventful recovery as you transition home. Everything went very smoothly for the procedures. With regards to your upper endoscopy, everything looks quite normal. There is just a little bit of irregularity where the esophagus connects down onto the stomach. I certainly do not see any signs of advanced Grion's esophagus, and in fact, I am curious to see what the biopsy results show. I am hopeful this will be improved compared to your previous. You do have a small hiatal hernia associated with this. This occurs when the top part of your stomach slips above the diaphragm muscle. These are typically graded 1 through 4, with 4 being larger and more complicated. I would consider years to be a grade 1. There is an operation to fix this, but honestly its fairly entailed. I do not perform that surgery, but I am more than happy to refer you to a specialist if you are interested. With well-controlled GERD symptoms, however, I do not think that there is much that you would really need to do for this anyway. With regards to your colonoscopy, I did find to remove 1 polyp today. This was small in size. I will send this off to the pathologist since polyps, different varieties. Once I have the information from the pathology report, my office will be in touch with recommendations for future colonoscopies. If you need anything or have any questions at all, please do not hesitate to ask, otherwise we will be in touch in the next week or 2 with the results of the pathology reports. 1. If tolerated, consume a soft, low fiber diet for 1-2 days. 2[address] Do not drive, drink alcohol, operate machinery, make critical decisions, or do activities that require coordination or balance for 24 hours. 3. Because air was put into your colon during the procedure, expelling air from your rectum (passing gas or farting) is normal. 4. You may not have a bowel movement for 1-3 days because of the colonoscopy prep. This is normal. 5. You may experience a sore throat for 24 to 48 hours. You may use throat lozenges or gargle with warm salt water to relieve the discomfort. 6. Because air was put into your stomach during the procedure, you may experience some belching. 7. Go directly to the emergency room if you notice any of the following: Develop chills (warm to touch), or if you have a thermometer and your temperature is above 101 Difficulty breathing or difficultly swallowing Persistent vomiting Severe abdominal pain, other than gas cramps Severe chest pain Black, tarry stools Any bleeding ? exceeding one tablespoon 8. Call your physician if the site where your intravenous was started becomes red, swollen, painful, and warm to touch. 9. Your physician has reviewed your pre-procedure medications. Please continue to take those medications as previously ordered. You will be given specific information/education regarding any changes to your medications before leaving. Stand Alone Forms: Anesthesia Discharge Jose Stewart (STEVE) Activity:: Activity as Tolerated Diet:: As Tolerated Discharge Orders Discharge Orders: Discharge Order (Routine); Ordered 10/30/24 Ordered By: Armando Mclaughlin DS: Diagnosis Discharge Diagnosis (1) Barretts esophagus: Status: Acute Asessment and Plan: Follow-up on biopsy results
[2024-10-31 10:53] VITALS: BP 145/94; PULSE 88; RESP 16; TEMP 36.3; O2SAT 98
--- NOTE | 2024-10-31 11:31 | W.ANESPRE ---
General Info Date of Service Date Performed: 10/31/24 Height: 5 ft 6 in Weight: 116.2 kg Body Mass Index (BMI): 41.3 Surgical Procedure: Operation Date: 10/31/24 11:35 Proposed Procedure Side Surgeon p Colonoscopy/Gastroscopy Armando Mclaughlin MD Meds Allergies and Home Medications Allergies Allergy/AdvReac Type Severity Reaction Status Date / Time No Known Allergies Allergy Verified 10/31/24 11:10 Home Medication ?Medication ?Instructions ?Recorded Gummie B Complex 1 tab PO DAILY 11/21/13 calcium citrate 250 mg PO DAILY 11/21/13 multivitamin (Daily Multi-Vitamin 1 ea PO DAILY 11/21/13 tablet) dietary supplement cap PO DAILY 06/03/23 magnesium gluconate 30 mg (550 mg) 30 mg PO DAILY 06/03/23 tablet famotidine 40 mg tablet 40 mg PO QHS PRN reflux, post 09/07/23 taper off PPI #90 tabs sucralfate 1 gram tablet See Rx Instructions .Route 04/10/24 .COMPLEX #90 tabs levothyroxine 75 mcg tablet 75 mcg PO DAILY 06/30/24 fluticasone propionate 50 1 - 2 spray intranasal DAILY PRN 10/11/24 mcg/actuation nasal nasal congestion/post-nasal drip spray,suspension (Flonase Allergy #16 grams Relief) Current Visit Medications: Current Medications Generic Name Dose Route Start Last Admin Trade Name Freq PRN Reason Stop Dose Admin Ringer's Solution 1,000 mls @ 80 mls/hr 10/31/24 06:00 IV 10/31/24 23:59 INFUSION [facility] IV Miscellaneous Supplies 1 each 10/31/24 06:00 Iv Access IV 10/31/24 23:59 DIRECTED EBENEZER Ondansetron HCl 4 mg 10/30/24 20:00 Ondansetron 4 Mg/2 Ml Vial IVP 11/29/24 19:59 Q4H PRN PRN Nausea / Vomiting Sodium Chloride 0 ml 10/31/24 06:00 Normal Saline Flush 10 Ml Syr IV 10/31/24 23:59 PRN PRN Sodium Chloride 0 ml 10/31/24 06:00 Normal Saline 10 Ml Vial IJ 10/31/24 23:59 DIRECTED PRN Sterile Water 0 ml 10/31/24 06:00 Water,Injection,Sterile 10 Ml Vial IJ 10/31/24 23:59 DIRECTED PRN PFSH Active Problems Active Problems: Problem Status Onset Code Hyperlipidemia Chronic E78.5 Hypothyroidism Chronic E03.9 Abnormal uterine bleeding (AUB) Acute N93.9 Vitamin D deficiency Acute E55.9 At risk for osteoporosis Acute Z91.89 Barretts esophagus Acute K22.70 Gastro-esophageal reflux disease with esophagitis Acute K21.00 Pain of right shoulder joint on movement Acute M25.511 Hypertension Chronic I10 Dyshydrosis Acute L30.1 Body mass index (BMI) of 40.1-44.9 in adult Chronic Z68.41 Eczema Chronic L30.9 Medical History Medical History Esophagitis Positive self-administered antigen test for COVID-19 sx onset 06/01/22. Elevated glucose tolerance test (02/28/14) 1hr elevated. pt ordered to have 3hr GTT. No lab results from 3-hr GTT in computer, but pt says Dr Banegas told her they were normal History of anemia H/H WNL, 11/2021 Rh negative state in antepartum period (10/24/13) needs Rhogam BMI 40.0-44.9, adult Eczema Anxiety Zoloft in the past. Surgical History Surgical History History of section (10/17/13) History of esophagogastroduodenoscopy (EGD) (~11/22/20) Tonsillectomy and adenoidectomy (~1983) section 02/19/12 LTCS with 2 layer 0-Vicryl closure. F. [id number]. Chorio, non-reassuring FHR at 41w. Daeva. 05/23/14 emergent RCD @ 40.3w for non-ressuring FHR w/o labor. Amniotic band around umbilical cord. Apgars 0/3/5. Wt 3380gms, Corry. Tobacco Smoking/Tobacco Use Status: Never Passive smoking exposure: No Alcohol Alcohol Intake: current Alcohol intake frequency: holidays/special occasions only Alcohol type: beer, wine and hard liquor Substance Use Substance use: Never Substance use type: does not use Vital Signs and Lab Results Vital Signs Most Recent Vital Signs in EMR: Most Recent Vital Signs Temp Pulse Resp BP Pulse Ox 36.3 C L 88 16 145/94 H 98 10/31/24 10:53 10/31/24 10:53 10/31/24 10:53 10/31/24 10:53 10/31/24 10:53 Point of Care Results Point of Care Results: POC- Test(urine) Negative 10/31/24 11:29 Anesthesia Assessment and Plan Anesthesia History Personal History: PONV Family History: No Family History of Anesthesia Complications Exercise Tolerance Exercise Tolerance: Metabolic Equivalents>4 Cardiac & Pulmonary Exam Cardiac Exam: Normal S1/S2 Heart Sounds Pulmonary Exam: Clear Bilateral Breath Sounds Implantable Cardiac Device Does patient have a Pacemaker or an ICD?: No Airway Exam Known Difficult Airway: No Mallampati Class: 3 Mouth Opening: Normal (> 3cm) Thyromental Distance: Greater than 3 cm Neck Range of Motion: Full ROM Neck Circumference: Thick Teeth Condition: Normal Dentition ASA Classification ASA Score: ASA 3 Emergency Case?: No NPO Status NPO Status: NPO Clears >2 hours, Solids >8 hours Status Status: Negative HCG Anesthesia Plan Resuscitation Status: Full Code Anesthesia Technique: General Anesthesia Airway Planned: Natural Airway Monitors Used: Standard Monitors Preoperative Comments:: 44 yo female for EGD/colo. sig PMHx: HTN, Giron's/GERD (famotidine - occ use. has had much improvement in her symptoms. Only uses sucralfate rare occations), hypothyroid (levothyroxine), anxiety. never smoker, occ EtOH. Previous Anes: - EGD, propofol, natural airway, no issues.
[2024-10-31 11:37] VITALS: BMI 41.3
[2024-10-31] MEDS: Lactated Ringers 1,000 ML 80 ML IV (11:43)
--- NOTE | 2024-10-31 12:47 | BOWEL_PTH ---
PATIENT: Jose Saenz LOC: [facility] U#:[id number] AGE/SX: 44/F ROOM: RE10/31/[address]: Armando Mclaughlin MD : 1980 BED: DIS: 10/31/2024 SPEC #: [id number] RECD: 10/31/24 17:29 STATUS: AMINA REQ #: [id number] RSOANNE: 10/31/24 12:[address]: Armando Mclaughlin DEPT: Surgical Specimen RECD BY: Kelly Vance ENTERED: 10/31/24 17:30 SP TYPE: Bowel OTHR DR: Serjio Campos DO Tissues: 1 - ESOPHAGUS BIOPSY 2 - BIOPSY BOWEL Procedures: GROSS AND MICRO LEVEL 4 Comments: [id number]
[2024-10-31 13:13] VITALS: BP 111/68; PULSE 80; RESP 16; TEMP 36.1; O2SAT 95
--- NOTE | 2024-10-31 13:21 | W.ANESPOSTOP ---
Postoperative Evaluation Date, Time and Location Date Performed: 10/31/24 Time Performed: 13:21 Patient Location: Day Surgery Unit Vital Signs Most Recent Imported Vital Signs: Most Recent Vital Signs Temp Pulse Resp BP Pulse Ox 36.1 C L 80 16 111/68 95 10/31/24 13:13 10/31/24 13:13 10/31/24 13:13 10/31/24 13:13 10/31/24 13:13 Pain Score Most Recent Pain Score: Most Recent Pain Score Pain Level 0 10/31/24 13:13 Assessment Mental Status: Awake (Alert & Oriented to Patient Baseline) Airway and Respiratory Function: Patent airway with normal (patient baseline) respiratory exam Cardiovascular Function: Hemodynamically Stable Hydration Status: Adequately Hydrated Nausea & Vomiting: No Nausea or Vomiting Pain: Pt. Denies Any Pain Peripheral Nerve Block: Patient did not receive a nerve block
[2024-10-31 13:47] VITALS: BP 129/90; PULSE 90; RESP 16; TEMP 36.1; O2SAT 99
== END 2024-10-31 14:14 | disposition home or self-care (01) ==
LOC: SUR 10:33
PROVIDERS: PCP Family Medicine; Visit Provider Surgery
PROC: (CPT 45385; principal; 2024-10-31 11:30)
DX: K22.70 Barrett's esophagus without dysplasia (principal); Z12.11 Encounter for screening for malignant neoplasm of colon; D12.4 Benign neoplasm of descending colon
CPT/HCPCS: 45385; 43239; 81025; 88305; J2003; J2704

== ENCOUNTER 2025-01-10 08:14 | Outpatient (REF) | payer OTHER, SELFPAY ==
--- NOTE | 2025-01-10 07:30 | SKI_PTH ---
PATIENT: Jose Saenz LOC: [facility] U#:[id number] AGE/SX: 44/F ROOM: RE01/10/[address]: Johnathan Collins MD : 1980 BED: DIS: 01/10/2025 SPEC #: [id number] RECD: 01/10/25 12:34 STATUS: AMINA REQ #: [id number] ROSANNE: 01/10/25 07:[address]: Johnathan Collins DEPT: Surgical Specimen RECD BY: Kelly Vance ENTERED: 01/10/25 12:34 SP TYPE: MAXIMUS SUAZO DR: Serjio Campos DO Tissues: 1 - SKIN BIOPSY(SHAVE/PUNCH) Procedures: SKIN LEVEL 4 Comments: [id number]
== END 2025-01-10 08:15 | disposition home or self-care (01) ==
LOC: LBN 08:14
PROVIDERS: PCP Family Medicine; Visit Provider Otolaryngology
DX: D22.9 Melanocytic nevi, unspecified (principal)
CPT/HCPCS: 88305